=== PATIENT | female | born 1995 | race African-American/Black ===

== ENCOUNTER 2016-12-14 10:18 | Outpatient (CLI) | payer OTHER ==
--- NOTE | 2016-12-14 16:50 | Ultrasound Report ---
TRANSABDOMINAL PELVIC ULTRASOUND: 12/14/16 CLINICAL: Pelvic and perineal pain. FINDINGS: Transabdominal ultrasound demonstrated a normal retroverted uterus measuring 7.1 x 4.1 x 4.8 cm. Normal uterine contour and echogenicity. Normal endometrium measuring 4.0 mm AP thickness. Normal ovaries with small follicles.The right ovary measures 3.3 x 1.9 x 2.6cm. The left ovary measures 3.3 x 2.9 x 2.6cm. No adnexal mass. Nofree fluid. Normal urinary bladder. IMPRESSION: Normal pelvis.
== END 2016-12-14 10:19 | disposition home or self-care (01) ==
LOC: SPVWC 10:18
PROVIDERS: ATTEND Family Medicine
DX: N94.89 Other specified conditions associated with female genital organs and menstrual cycle (principal)
CPT/HCPCS: 76856